=== PATIENT | male | born 2000 | race Caucasian/White ===

== ENCOUNTER 2022-12-01 18:51 | Emergency (ER) | payer OTHER ==
[~2022-12-01] VITALS: Ht 175.3 cm; Wt 61.2 kg
[2022-12-01 19:23] VITALS: BP_SYST 111
[2022-12-01] MEDS ORDERED: AMOX-423 PO (19:27)
[2022-12-01] MEDS ORDERED: IBUP-1969 PO (19:27)
--- NOTE | 2022-12-01 19:31 | NUR ---
PATIENT PRESENT WITH A SORE THROAT, FEVER OF 101.9, CHILLS, FATIGUE X 2 DAYS, RATES BODY ACHE A 01/25
--- NOTE | 2022-12-01 19:40 | NUR ---
ER at bedside examining patient.
[2022-12-01 23:04] VITALS: BP_SYST 111
--- NOTE | 2022-12-01 23:08 | NUR ---
Patient given written and verbal discharge instructions and verbalizes understanding. ER MD discussed with patient the results and treatment provided. Patient in stable condition. ID arm band removed. Rx of IBUPROFEN given. Patient educated on PHARYNGITIS management and to follow up with PMD. Pain Scale 0. Opportunity for questions provided and answered. Medication side effect fact sheet provided.
== END 2022-12-01 23:04 | disposition home or self-care (01) ==
LOC: SED 18:51
DX: J02.0 Streptococcal pharyngitis (principal); R50.9 Fever, unspecified; M79.10 Myalgia, unspecified site; Z79.899 Other long term (current) drug therapy
CPT/HCPCS: 36415; 86403; 99283